=== PATIENT | female | born 1960 | race Caucasian/White ===

== ENCOUNTER 2016-10-17 14:08 | Emergency (ER) | payer MEDICAID ==
--- NOTE | 2016-10-17 14:52 | ED Physician Documentation ---
PD HPI FEMALE - Stated complaint Stated Complaint: FEMALE - Chief complaint Chief Complaint: Abd Pain - History obtained from History obtained from: Patient - History of Present Illness Timing - onset: How many months ago (1 month intermittent lower abd cramping, some vaginal bleeding at times, frequency of urination, and had noted fullness feeling at vaginal opening at times. This is worse the past week. Had been told in the past she had dropped bladder/prolapse, but was doing okay without problems until the past month.) Timing - duration: Months (1) Timing - details: Gradual onset, Still present, Waxing and waning Associated symptoms: Vaginal pain, Urinary frequency. No: Fever, Vaginal discharge, Genital sore/lesion, Hematuria Contributing factors: No: Exposed to STD Recently seen: Not recently seen Review of Systems Constitutional: denies: Fever, Chills Nose: denies: Rhinorrhea / runny nose, Congestion Throat: denies: Sore throat Cardiac: denies: Chest pain / pressure Respiratory: denies: Dyspnea, Cough, Wheezing GI: reports: Abdominal Pain (cramping lower abd pains, and feeling pain in vaginal/pelvic area), Nausea, Diarrhea (soft stool and dark color). denies: Vomiting, Constipation : reports: Frequency. denies: Dysuria, Discharge, Vaginal bleeding Skin: denies: Rash, Lesions PD PAST MEDICAL HISTORY - Past Medical History Cardiovascular: Hypertension, Atrial fibrillation Respiratory: None Neuro: None Endocrine/Autoimmune: None GI: None HUMAN RESOURCES DESIGNATE: None : None Psych: Depression, Anxiety Musculoskeletal: None Derm: None - Past Surgical History Past Surgical History: Yes General: Cholecystectomy, Appendectomy /HUMAN RESOURCES DESIGNATE: Hysterectomy - Present Medications Home Medications: Ambulatory Orders Medication Instructions Recorded Confirmed Alprazolam 1 mg PO 3-4XD PRN 09/25/12 08/02/15 Atenolol 25 mg PO BID 09/25/12 08/02/15 Buprenorphine HCl/Naloxone HCl 08/02/15 [Suboxone 8 mg-2 mg Sl Film] Naproxen [Naprosyn] 500 mg PO BID #20 tablet 10/17/16 - Allergies Allergies/Adverse Reactions: Allergies Allergy/AdvReac Type Severity Reaction Status Date / Time erythromycin base Allergy Unknown Rash Verified 08/02/15 02:18 ibuprofen [From Motrin] Allergy Unknown Rash Verified 08/02/15 02:18 iodine Allergy Unknown Itching Verified 08/02/15 02:18 cephalexin monohydrate * AdvReac Unknown Rash Verified 08/02/15 02:18 [From Keflex] doxycycline calcium * AdvReac Unknown Rash Verified 08/02/15 02:18 [From Vibramycin] morphine AdvReac Unknown Itching Verified 08/02/15 02:18 - Social History Does the pt smoke?: Yes Smoking Status: Current every day smoker Does the pt drink ETOH?: No Does the pt have substance abuse?: No - Immunizations Immunizations are current?: Yes - POLST Patient has POLST: No PD ED PE NORMAL - Vitals Vital signs reviewed: Yes - General General: Alert and oriented X 3, Well developed/nourished, Other (does appear uncomfortable.) - HEENT HEENT: Pharynx benign - Neck Neck: Supple, no meningeal sign, No adenopathy - Cardiac Cardiac: RRR, No murmur - Respiratory Respiratory: Clear bilaterally - Abdomen Abdomen: Normal bowel sounds, Soft, Non distended, No organomegaly, Other (some tenderness supreapubic without guarding. ) - Female Female : [employer] Super[employer] present, Other (external normal. Just inside introitus, the bladder is visible blocking vaginal opening. Easily pushed up. No discharge in vault. ) - Rectal Rectal: Other (guiac negative) - Back Back: No CVA TTP - Derm Derm: Normal color, Warm and dry, No rash Results - Vitals Vitals: Vital Signs - 24 hr 10/17/16 10/17/16 10/17/16 14:11 15:44 18:27 Temperature 36.3 C L Heart Rate 69 61 63 Respiratory 17 20 18 Rate Blood Pressure 184/80 H 156/70 H 149/77 H O2 Saturation 100 97 97 Oxygen O2 Source Room air - Labs Labs: Laboratory Tests 10/17/16 10/17/16 10/17/16 14:41 15:24 16:06 WBC 12.4 H RBC 4.14 L Hgb 12.4 Hct 37.8 MCV 91.2 MCH 29.9 MCHC 32.7 RDW 13.3 Plt Count 245 MPV 10.1 Neut # 8.5 H Lymph # 2.7 [place] # 0.8 Eos # 0.3 Baso # 0.2 H Absolute Nucleated RBC 0.00 Nucleated RBCs 0.0 Sodium 139 Potassium 4.0 Chloride 109 Carbon Dioxide 23 Anion Gap 7.0 BUN 18 Creatinine 0.5 Estimated GFR (MDRD) 129 Glucose 93 Calcium 9.3 Total Bilirubin 1.1 H AST 18 ALT 16 Alkaline Phosphatase 80 Total Protein 6.8 Albumin 3.9 Globulin 2.9 Albumin/Globulin Ratio 1.3 Lipase 27 Urine Color YELLOW Urine Clarity CLEAR Urine pH 7.0 Ur Specific [place] 1.010 Urine Protein NEGATIVE Urine Glucose (UA) NEGATIVE Urine Ketones NEGATIVE Urine Occult Blood TRACE-INTA Urine Nitrite NEGATIVE Urine Bilirubin NEGATIVE Urine Urobilinogen 4 H Ur Leukocyte Esterase NEGATIVE Ur Microscopic Review NOT INDICATED Urine Culture Comments NOT INDICATED PD MEDICAL DECISION MAKING - ED course Complexity details: reviewed results (abd CT is normal), considered differential (could be pain from the bladder dropped, and it is visible with just partial labia, but not sticking out per se. No vaginitis seen. Consider GI cause as well, so got CT and no signs of diverticulitis,etc. ), d/w patient Departure - Departure Disposition: 01 Home, Self Care Clinical Impression: Pelvic pain, Bladder prolapse, female, acquired Condition: Stable Record reviewed to determine appropriate education?: Yes Follow-Up: Willi Barrett MD [Primary Care Provider] - Nitza Sousa DO [Provider Admit Priv/Credential] - Prescriptions: Naproxen [Naprosyn] 500 mg PO BID #20 tablet Comments: No signs of bladder infection, vaginal infection, nor intestinal such as diverticulitis. Presume the pain is from the bladder dropped and irritated. Naproxen twice daily. Follow up with Dr. Sousa[facility]. You could try at the drug store, picking up a Pessary or some type of insert to support the bladder in the interim. Discharge Date/Time: 10/17/16 18:28
[2016-10-17] MEDS ORDERED: SODIUM CHLORIDE 0.9% 1,000 ML IV ONE (15:11)
[2016-10-17 15:13] LABS: BILIRUBIN,URINE NEGATIVE (NEGATIVE)
[2016-10-17] MEDS ORDERED: ACETAMINOPHEN 1,000 MG/100 ML 100 ML IV STA (15:13)
[2016-10-17] MEDS ORDERED: KETOROLAC 15 MG/ML VIAL IVP STA (15:13)
[2016-10-17 15:15] LABS: UA CHARGE (STRIP ONLY) YES; UR CULTURE IF IND NOT INDICATED
[2016-10-17] MEDS ORDERED: ACETAMINOPHEN 1,000 MG/100 ML 100 ML IV ONE (15:27)
[2016-10-17] MEDS ORDERED: KETOROLAC 30 MG/ML VIAL ONE (15:27)
[2016-10-17 15:31] LABS: BASOPHILS # (AUTO) 0.2 10^3/uL (0.0-0.1); BASOPHILS % (AUTO) 1.4 %; EOSINOPHILS # (AUTO) 0.3 10^3/uL (0.0-0.7); EOSINOPHILS % (AUTO) 2.3 %; HCT - HEMATOCRIT 37.8 % (37.0-47.0); HGB - HEMOGLOBIN 12.4 g/dL (12.0-16.0); LYMPHOCYTES # (AUTO) 2.7 10^3/uL (1.5-3.5); LYMPHOCYTES % (AUTO) 21.7 %; MEAN CORPUSCULAR HEMOGLOBIN 29.9 pg (27.0-31.0); MEAN CORPUSCULAR HGB CONC 32.7 g/dL (32.0-36.0); MEAN CORPUSCULAR VOLUME 91.2 fL (81.0-99.0); MEAN PLATELET VOLUME 10.1 fL (7.9-10.8); MONOCYTES # (AUTO) 0.8 10^3/uL (0.0-1.0); MONOCYTES % (AUTO) 6.4 %; NEUTROPHILS # (AUTO) 8.5 10^3/uL (1.5-6.6); NEUTROPHILS % (AUTO) 68.2 %; RED BLOOD COUNT 4.14 10^6/uL (4.20-5.40); RED CELL DISTRIBUTION WIDTH 13.3 % (12.0-15.0); UNCORRECTED WHITE BLOOD COUNT 12.4 x10^3/uL; WHITE BLOOD COUNT 12.4 x10^3/uL (4.8-10.8)
[2016-10-17 16:32] LABS: ALBUMIN/GLOBULIN RATIO 1.3 (1.0-2.2); BILIRUBIN,TOTAL 1.1 mg/dL (0.2-1.0); CALCIUM 9.3 mg/dL (8.5-10.3); CREATININE 0.5 mg/dL (0.4-1.0); TOTAL PROTEIN 6.8 g/dL (6.7-8.2)
--- NOTE | 2016-10-17 18:05 | CT Preliminary Report ---
Exam: CT Abdomen/Pelvis W/O IMPRESSION: 1. Mild cardiomegaly. 2. Left nephrolithiasis. No obstructive uropathy. 3. Colonic diverticulosis. 4. Trace amount of free pelvic fluid. [facility] SITE ID: [id number]
--- NOTE | 2016-10-17 18:22 | CT Report ---
EXAM: CT ABDOMEN AND PELVIS EXAM DATE: 10/17/2016 05:22 PM. CLINICAL HISTORY: Hysterectomy and right oophorectomy. Appendectomy. Lower abdominal/rectal pain for week or so. Patient allergic to IV contrast. COMPARISONS: Chest CT 08/22/2008. No prior CT abdomen and pelvis. TECHNIQUE: Routine helical CT imaging was performed through the abdomen and pelvis. IV contrast: None . Enteric contrast: No. Reconstructions: Coronal and sagittal. In accordance with CT protocol optimization, one or more of the following dose reduction techniques w ere utilized for this exam: automated exposure control, adjustment of mA and/or KV based on patient s ize, or use of iterative reconstructive technique. FINDINGS: Lung Bases: Mild cardiomegaly. Liver: Normal. No masses. Gallbladder/Bile Ducts: Unremarkable. Spleen: Normal. Pancreas: Normal. Adrenal Glands: Normal. Kidneys: 1 mm stone superior left pelvicalyceal system. No renal mass lesions, hydronephrosis. Both u reters are small without calcified stones. Peritoneal Cavity/Bowel: Diverticula off the colon. No free fluid, free air or adenopathy. No masses or acute inflammatory process. Appendectomy. Pelvic Organs: Hysterectomy. Neither ovary seen. Trace amount of left-sided pelvic fluid. No stones in the small caliber urinary bladder. Normal rectum and normal perirectal fat. Vasculature: No aneurysms or other significant abnormality. Bones: No significant abnormality. Other: None. IMPRESSION: 1. Mild cardiomegaly. 2. Left nephrolithiasis. No obstructive uropathy. 3. Colonic diverticulosis. 4. Trace amount of free pelvic fluid. [facility] Referring Provider Line: [phone] SITE ID: [id number]
[2016-10-17 18:28] VITALS: BP 149/77
== END 2016-10-17 18:28 | disposition home or self-care (01) ==
LOC: ED 14:08
DX: R10.2 Pelvic and perineal pain (principal); N81.10 Cystocele, unspecified; I10 Essential (primary) hypertension; I48.91 Unspecified atrial fibrillation; F17.200 Nicotine dependence, unspecified, uncomplicated
CPT/HCPCS: 36415; 51798; 74176; 80053; 81003; 83690; 85025; 96361; 96374; 96375; 99284; J0131; 81001; 87086

== ENCOUNTER 2016-12-02 14:44 | Emergency (ER) | payer MEDICAID ==
--- NOTE | 2016-12-02 16:49 | XRAY Preliminary Report ---
Exam: XR Foot 3 View RT IMPRESSION: 1. Normal alignment without acute fracture or dislocation of the right foot. [facility] SITE ID: [id number]
--- NOTE | 2016-12-02 16:52 | XRAY Report ---
EXAM: RIGHT FOOT RADIOGRAPHY EXAM DATE: 12/02/2016 04:29 PM. CLINICAL HISTORY: INJURY RIGHT FOREFOOT. COMPARISON: None. TECHNIQUE: 3 views. FINDINGS: Bones: Small plantar calcaneal spur. No fractures or bone lesions. Joints: Normal. No subluxations. Soft Tissues: Normal. No soft tissue swelling. IMPRESSION: 1. Normal alignment without acute fracture or dislocation of the right foot. [facility] Referring Provider Line: [phone] SITE ID: [id number]
--- NOTE | 2016-12-02 17:34 | ED Physician Documentation ---
History of Present Illness - Stated complaint Stated Complaint: BILAT FOOT PX - Chief complaint Chief Complaint: Ext Problem - History obtained from History obtained from: Patient - Additonal information Additional information: Patient is a 56-year-old female with history of chronic pain on narcotics and benzodiazepines. There is a emergency department information exchanged care sheet that shows the recent prescriptions. She dropped half a bucket of paint on her foot yesterday and complains of midfoot pain on the right side. She says his pain is worse with walking and better with rest. She is here seeking evaluation for this injury. She denies any injury anywhere else in her body. She denies chest pain, shortness of breath, nausea, vomiting, fever chills, constipation or diarrhea, and lower urinary symptoms. Review of systems: For pertinent positive and negative questions for the review of systems please see history of present illness. Otherwise all other systems have been reviewed and are negative. Dragon disclaimer: Parts of this medical record were created using voice recognition technology. Because of the inherent limitations of this system occasional same sounding word substitutions do occur and persist despite proofreading. Please read the document for context. PD PAST MEDICAL HISTORY - Past Medical History Cardiovascular: Hypertension, Atrial fibrillation Respiratory: None Neuro: None Endocrine/Autoimmune: None GI: None RESERVATIONS AGENT: None : None Psych: Depression, Anxiety Musculoskeletal: None Derm: None - Past Surgical History Past Surgical History: Yes General: Cholecystectomy, Appendectomy /RESERVATIONS AGENT: Hysterectomy - Present Medications Home Medications: Ambulatory Orders Medication Instructions Recorded Confirmed Alprazolam 1 mg PO 3-4XD PRN 09/25/12 12/02/16 Atenolol 25 mg PO BID 09/25/12 12/02/16 Buprenorphine HCl/Naloxone HCl 2 tab DAILY 08/02/15 12/02/16 [Suboxone 8 mg-2 mg Sl Film] Sertraline [Zoloft] 0 mg DAILY 12/02/16 12/02/16 - Allergies Allergies/Adverse Reactions: Allergies Allergy/AdvReac Type Severity Reaction Status Date / Time erythromycin base Allergy Unknown Rash Verified 12/02/16 14:50 ibuprofen [From Motrin] Allergy Unknown Rash Verified 12/02/16 14:50 iodine Allergy Unknown Itching Verified 12/02/16 14:50 cephalexin monohydrate * AdvReac Unknown Rash Verified 12/02/16 14:50 [From Keflex] doxycycline calcium * AdvReac Unknown Rash Verified 12/02/16 14:50 [From Vibramycin] morphine AdvReac Unknown Itching Verified 12/02/16 14:50 - Social History Does the pt smoke?: Yes Smoking Status: Current every day smoker Does the pt drink ETOH?: No Does the pt have substance abuse?: No - Immunizations Immunizations are current?: Yes - POLST Patient has POLST: No PD ED PE NORMAL - General General: Alert and oriented X 3, No acute distress, Other (Appears slightly sedated but is talking almost normally) - HEENT HEENT: Atraumatic, PERRL - Neck Neck: Supple, no meningeal sign - Cardiac Cardiac: RRR, No gallop, No rub, Other. No: No murmur, Strong equal pulses - Respiratory Respiratory: No respiratory distress, Clear bilaterally - Abdomen Abdomen: Normal bowel sounds, Non tender, Non distended - Back Back: No CVA TTP - Derm Derm: Normal color, Warm and dry - Extremities Extremities: Other (Minimal barely perceptible soft tissue swelling forefoot area right side of her the base and middle fourth and fifth metatarsals) Results - Vitals Vitals: Vital Signs - 24 hr 12/02/16 14:45 Temperature 36.2 C L Heart Rate 64 Respiratory 18 Rate Blood Pressure 165/77 H O2 Saturation 94 Oxygen O2 Source Room air PD MEDICAL DECISION MAKING - ED course ED course: Patient presents with complaints of the midfoot contusion. The mechanism as she dropped half a can of paint on it yesterday and has had pain since into the present. On physical exam I really do not see anything abnormal I might be able to appreciate little soft tissue but it is not very impressive. X-rays of the foot were obtained , Read by me, and appear to be completely normal at least in the area of question. My pretest probability for it for acute injury is very low and given the fact that sheIs on chronic high-dose narcotics I see no indication to give her any more narcotics. I am recommending Tylenol as needed rest elevation and follow-up. Disposition: To home Clinical impression: 1. Right Foot contusion-mild Departure - Departure Disposition: 01 Home, Self Care Clinical Impression: Contusion of foot Qualifiers: Encounter type: initial encounter Laterality: right Qualified Code(s): S90.31XA - Contusion of right foot, initial encounter Condition: Good Instructions: ED Contusion Foot Follow-Up: Willi Barrett MD [Primary Care Provider] - Comments: Rest, ice, and elevation.
[2016-12-02 17:43] VITALS: BP 133/69
== END 2016-12-02 17:42 | disposition home or self-care (01) ==
LOC: ED 14:44
DX: S90.31XA Contusion of right foot, initial encounter (principal); W22.8XXA Striking against or struck by other objects, initial encounter; G89.29 Other chronic pain; I10 Essential (primary) hypertension; F17.200 Nicotine dependence, unspecified, uncomplicated
CPT/HCPCS: 99282; 99283

== ENCOUNTER 2017-02-13 08:00 | Outpatient (CLI) | payer MEDICAID ==
[2017-02-13 16:15] LABS: BILIRUBIN,URINE NEGATIVE (NEGATIVE); PH,URINE 6.5 PH (5.0-7.5)
[2017-02-13 16:23] LABS: UR CULTURE IF IND NOT INDICATED; WBC,URINE 0-3 /HPF (0-5)
== END 2017-02-13 08:01 | disposition home or self-care (01) ==
LOC: LAB.R 08:00
PROVIDERS: ATTEND Obstetrics & Gynecology
DX: R35.0 Frequency of micturition (principal)
CPT/HCPCS: 81001; 87086

== ENCOUNTER 2017-03-15 16:58 | Emergency (ER) | payer MEDICAID ==
--- NOTE | 2017-03-15 17:30 | ED Physician Documentation ---
PD HPI UPPER EXT INJURY - Stated complaint Stated Complaint: LEFT ARM INJ - Chief complaint Chief Complaint: Ext Problem - History obtained from History obtained from: Patient - History of Present Illness Location: Left, Wrist Type of injury: Fall Timing - onset: Today Timing - details: Abrupt onset, Still present Improved by: No: Rest Worsened by: Moving, Palpating Associated symptoms: Swelling. No: Weakness, Numbness Similar symptoms before: Has not had sx before Recently seen: Not recently seen Review of Systems Skin: denies: Abrasion (s), Laceration (s) Neurologic: reports: Generalized weakness. denies: Focal weakness, Numbness PD PAST MEDICAL HISTORY - Past Medical History Cardiovascular: Hypertension, Atrial fibrillation Respiratory: None Neuro: None Endocrine/Autoimmune: None GI: None FIBREGLASS LAMINATOR: None : None Psych: Depression, Anxiety Musculoskeletal: None Derm: None - Past Surgical History Past Surgical History: Yes General: Cholecystectomy, Appendectomy /FIBREGLASS LAMINATOR: Hysterectomy - Present Medications Home Medications: Ambulatory Orders Medication Instructions Recorded Confirmed Alprazolam 1 mg PO 3-4XD PRN 09/25/12 03/15/17 Atenolol 25 mg PO BID 09/25/12 03/15/17 Buprenorphine HCl/Naloxone HCl 2 tab DAILY 08/02/15 03/15/17 [Suboxone 8 mg-2 mg Sl Film] Atenolol 25 mg PO BID #60 tablet 03/15/17 Naproxen 375 mg PO BID #20 tablet 03/15/17 Sertraline [Zoloft] 50 mg PO DAILY #60 tablet 03/15/17 - Allergies Allergies/Adverse Reactions: Allergies Allergy/AdvReac Type Severity Reaction Status Date / Time erythromycin base Allergy Unknown Rash Verified 03/15/17 17:44 ibuprofen [From Motrin] Allergy Unknown Rash Verified 03/15/17 17:44 iodine Allergy Unknown Itching Verified 03/15/17 17:44 cephalexin monohydrate * AdvReac Unknown Rash Verified 03/15/17 17:44 [From Keflex] doxycycline calcium * AdvReac Unknown Rash Verified 03/15/17 17:44 [From Vibramycin] morphine AdvReac Unknown Itching Verified 03/15/17 17:44 - Social History Does the pt smoke?: Yes Smoking Status: Current every day smoker Does the pt drink ETOH?: No Does the pt have substance abuse?: No - Immunizations Immunizations are current?: Yes - POLST Patient has POLST: No PD ED PE NORMAL - Vitals Vital signs reviewed: Yes - General General: Alert and oriented X 3, No acute distress, Well developed/nourished - HEENT HEENT: Atraumatic - Neck Neck: Supple, no meningeal sign, No bony TTP, No adenopathy - Cardiac Cardiac: RRR - Respiratory Respiratory: No respiratory distress, Clear bilaterally - Abdomen Abdomen: Soft, Non tender - Derm Derm: Normal color, Warm and dry Results - Vitals Vitals: Oxygen O2 Source Room air PD MEDICAL DECISION MAKING - ED course Complexity details: reviewed results (nondisplaced distal radius fracture. ), considered differential, d/w patient Departure - Departure Disposition: Home, Self Care Clinical Impression: Fall from slip, trip, or stumble Qualifiers: Encounter type: initial encounter Qualified Code(s): W01.0XXA - Fall on same level from slipping, tripping and stumbling without subsequent striking against object, initial encounter Distal radius fracture, left Qualifiers: Encounter type: initial encounter Fracture type: closed Fracture morphology: Colles' Qualified Code(s): S52.532A - Colles' fracture of left radius, initial encounter for closed fracture Hypertension Qualifiers: Hypertension type: unspecified secondary hypertension Qualified Code(s): I15.9 - Secondary hypertension, unspecified Condition: Stable Record reviewed to determine appropriate education?: Yes Instructions: ED Fx Colles Wrist No Redu Requ Follow-Up: Joaquina Garcia MD [Provider Admit Priv/Credential] - Prescriptions: Atenolol 25 mg PO BID #60 tablet Naproxen 375 mg PO BID #20 tablet Sertraline [Zoloft] 50 mg PO DAILY #60 tablet Comments: Keep the splint on the wrist with elevation and ice periodically for swelling. Use a sling to keep it elevated. You can use naproxen twice daily and add Tylenol if needed for pain. Continue usual medications. Follow-up with orthopedics in about 5-7 days. Call Friday for an appointment. This will take about 4-6 weeks to heal up, but at the orthopedic visit they will likely re-x- ray to make sure it is still in position and then change from the splint to the cast. Discharge Date/Time: 03/15/17 19:19
[2017-03-15] MEDS ORDERED: ACETAMINOPHEN 325 MG TABLET PO STA (17:37)
[2017-03-15] MEDS ORDERED: ACETAMINOPHEN 325 MG TABLET PO ONE (17:45)
[2017-03-15] MEDS ORDERED: KETOROLAC 60 MG/2 ML VIAL IM STA (18:20)
[2017-03-15] MEDS ORDERED: ATENOLOL 25 MG TABLET PO STA (18:21)
--- NOTE | 2017-03-15 18:32 | XRAY Preliminary Report ---
Exam: XR WRIST 4 VIEW LT IMPRESSION: Colles' fracture [facility] SITE ID: [id number]
[2017-03-15] MEDS ORDERED: ATENOLOL 25 MG TABLET ONE (18:35)
[2017-03-15] MEDS ORDERED: KETOROLAC 30 MG/ML VIAL ONE (18:35)
--- NOTE | 2017-03-15 18:39 | XRAY Report ---
EXAM: LEFT WRIST RADIOGRAPHY EXAM DATE: 03/15/2017 06:13 p.m. CLINICAL HISTORY: Fall with wrist injury. COMPARISON: None. TECHNIQUE: 4 views. FINDINGS: Bones: Acute 2 x 3 mm nondisplaced flake fracture at the tip of the ulnar styloid process. Acute comminuted fracture of the distal radius, transverse component distal radial metaphysis, with a orthogonal component sagittal plane extending to the articulating cortex and distal radial diaphysis . Joints: Normal. No subluxations. Soft Tissues: Edema at the fracture sites. IMPRESSION: Colles' fracture. [facility] Referring Provider Line: [phone] SITE ID: [id number]
[2017-03-15 19:19] VITALS: BP 182/91
== END 2017-03-15 19:19 | disposition home or self-care (01) ==
LOC: ED 16:58
DX: S52.532A Colles' fracture of left radius, initial encounter for closed fracture (principal); W01.0XXA Fall on same level from slipping, tripping and stumbling without subsequent striking against object, initial encounter; I10 Essential (primary) hypertension; I48.91 Unspecified atrial fibrillation; F17.200 Nicotine dependence, unspecified, uncomplicated
CPT/HCPCS: 29105; 73110; 96372; 99283; 99284; A9270

== ENCOUNTER 2017-08-19 10:53 | Outpatient (CLI) | payer MEDICAID ==
--- NOTE | 2017-08-20 16:09 | Mammography Report ---
DIGITAL SCREENING MAMMOGRAM: 08/19/2017 CLINICAL INDICATION: A 57-year-old nulliparous patient, for screening. COMPARISON: 11/2015, 09/2013, 09/2012, 09/2011, 02/2010. TECHNIQUE: Routine CC and MLO projections were obtained of the breasts. FINDINGS: The breasts demonstrate scattered fibroglandular densities bilaterally. A few coarse, typically benign calcifications are present. No suspicious masses, clustered microcalcifications, or regions of architectural distortion are identified. IMPRESSION: BENIGN FINDINGS. RECOMMENDATION: ROUTINE ANNUAL SCREENING UNLESS OTHERWISE CLINICALLY INDICATED. BIRADS CATEGORY 2-BENIGN FINDINGS. STANDARD QUALIFYING STATEMENTS: 1. This examination was reviewed with the aid of Computer-Aided Detection (CAD). 2. A negative or benign imaging report should not delay biopsy if clinically suspicious findings are present. Consider surgical consultation if warranted. More than 5% of cancers are not identified by imaging. 3. Dense breasts may obscure an underlying neoplasm. TD: 08/20/2017 16:08
== END 2017-08-19 10:54 | disposition home or self-care (01) ==
LOC: DI 10:53
PROVIDERS: ATTEND Physician Assistant Medical
DX: Z00.00 Encounter for general adult medical examination without abnormal findings (principal)
CPT/HCPCS: 77067

== ENCOUNTER 2018-02-19 08:52 | Outpatient (CLI) | payer MEDICAID ==
--- NOTE | 2018-02-19 12:29 | XRAY Report ---
Reason: PAIN IN R HAND Procedure Date: 02/19/2018 Accession Number: [id number] / [id number] Procedure: XRN - Hand 3 View RT CPT Code: FULL RESULT: EXAM: RIGHT HAND RADIOGRAPHY EXAM DATE: 02/19/2018 09:15 AM. CLINICAL HISTORY: Pain in right hand. COMPARISON: None. TECHNIQUE: 3 views. FINDINGS: Bones: Normal. No fractures or bone lesions. Joints: Mild degenerative changes are seen in the region of the first and second carpometacarpal joints. No subluxation is identified. Soft Tissues: Normal. No soft tissue swelling. IMPRESSION: No fracture or dislocation. [facility]
== END 2018-02-19 08:53 | disposition home or self-care (01) ==
LOC: DI.N 08:52
PROVIDERS: ATTEND Physician Assistant Medical
DX: M79.641 Pain in right hand (principal)

== ENCOUNTER 2018-08-05 08:00 | Outpatient (CLI) | payer MEDICAID ==
[2018-08-05 19:19] LABS: BASOPHILS # (AUTO) 0.1 10^3/uL (0.0-0.1); BASOPHILS % (AUTO) 0.8 %; EOSINOPHILS # (AUTO) 0.3 10^3/uL (0.0-0.7); EOSINOPHILS % (AUTO) 2.5 %; LYMPHOCYTES # (AUTO) 3.2 10^3/uL (1.5-3.5); LYMPHOCYTES % (AUTO) 30.2 %; MEAN CORPUSCULAR HEMOGLOBIN 29.6 pg (27.0-31.0); MEAN CORPUSCULAR HGB CONC 33.2 g/dL (32.0-36.0); MEAN CORPUSCULAR VOLUME 89.3 fL (81.0-99.0); MEAN PLATELET VOLUME 8.8 fL (7.9-10.8); MONOCYTES # (AUTO) 0.7 10^3/uL (0.0-1.0); MONOCYTES % (AUTO) 6.5 %; NEUTROPHILS # (AUTO) 6.4 10^3/uL (1.5-6.6); PLT - PLATELET COUNT 194 10^3/uL (130-450); RED BLOOD COUNT 4.73 10^6/uL (4.20-5.40); RED CELL DISTRIBUTION WIDTH 13.7 % (12.0-15.0); WHITE BLOOD COUNT 10.7 x10^3/uL (4.8-10.8)
[2018-08-05 19:29] LABS: ALBUMIN 4.6 g/dL (3.2-5.5); ALBUMIN/GLOBULIN RATIO 1.4 (1.0-2.2); ALKALINE PHOSPHATASE 92 IU/L (42-121); ALT ALANINE AMINOTRANSFERASE 16 IU/L (10-60); AST ASPARTATE AMINOTRANSFERASE 23 IU/L (10-42); BILIRUBIN,TOTAL 0.9 mg/dL (0.2-1.0); BUN - BLOOD UREA NITROGEN 22 mg/dL (6-20); CALCIUM 10.6 mg/dL (8.5-10.3); CARBON DIOXIDE - CO2 29 mmol/L (21-32); CHLORIDE 99 mmol/L (101-111); CREATININE 0.6 mg/dL (0.4-1.0); GFR - MDRD 103 (>89); GLUCOSE 112 mg/dL (70-100); SODIUM 136 mmol/L (135-145); TOTAL PROTEIN 7.9 g/dL (6.7-8.2); URIC ACID 6.6 mg/dL (2.6-7.2)
[2018-08-05 19:31] LABS: CRP - C-REACTIVE PROTEIN < 1.0 mg/dL (0-1.0)
== END 2018-08-05 23:59 | disposition home or self-care (01) ==
LOC: LAB.N 08:00
PROVIDERS: ATTEND Family Medicine
DX: R25.2 Cramp and spasm (principal); I10 Essential (primary) hypertension
CPT/HCPCS: 36415; 80053; 83735; 84550; 85025; 85651; 86140

== ENCOUNTER 2018-08-20 14:22 | Outpatient (CLI) | payer MEDICAID ==
--- NOTE | 2018-08-21 10:28 | Mammography Report ---
Reason: SCREENING MAMMO Procedure Date: 08/20/2018 Accession Number: [id number] / [id number] Procedure: MGN - Screening Mammo Dig Bilat CPT Code: FULL RESULT: EXAM: Screening Mammo Dig Bilat DATE: 08/20/2018 2:58 PM CLINICAL HISTORY: Screening encounter. History of nulliparity and early menses. TECHNIQUE: Bilateral CC, laterally exaggerated CC, MLO views were obtained. COMPARISON: 08/19/2017 through 10/22/2012. FINDINGS: The breasts demonstrate scattered fibroglandular densities bilaterally. There are coarse typically benign calcifications. No suspicious masses, clustered microcalcifications, or regions of architectural distortion are identified. IMPRESSION: Benign findings RECOMMENDATION: Routine annual screening unless otherwise clinically indicated. BIRADS CATEGORY 2: Benign findings STANDARD QUALIFYING STATEMENTS: 1. This examination was reviewed with the aid of Computer-Aided Detection (CAD). 2. A negative or benign imaging report should not delay biopsy if clinically suspicious findings are present. Consider surgical consultation if warrented. More than 5% of cancers are not identified by imaging. 3. Dense breasts may obscure an underlying neoplasm.
== END 2018-08-20 14:23 | disposition home or self-care (01) ==
LOC: DI.N 14:22
DX: Z12.31 Encounter for screening mammogram for malignant neoplasm of breast (principal)
CPT/HCPCS: 77067

== ENCOUNTER 2018-09-21 08:00 | Outpatient (CLI) | payer MEDICAID | END 2018-09-21 23:59 | disposition home or self-care (01) | LOC: LAB.N 08:00 | PROVIDERS: ATTEND Physician Assistant Medical | DX: Z01.84 Encounter for antibody response examination (principal) | CPT/HCPCS: 36415; 86765 ==

== ENCOUNTER 2019-02-16 11:31 | Outpatient (CLI) | payer MEDICAID ==
--- NOTE | 2019-02-16 15:00 | XRAY Report ---
Reason: PRODUCTIVE COUGH Procedure Date: 02/16/2019 Accession Number: [id number] / [id number] Procedure: XRN - Chest 2 View X-Ray CPT Code: 23473 FULL RESULT: EXAM: CHEST RADIOGRAPHY EXAM DATE: 02/16/2019 11:43 AM. CLINICAL HISTORY: Productive cough. COMPARISON: CHEST 1 VIEW 01/04/2013 11:34 AM. TECHNIQUE: 2 views. FINDINGS: Lungs/Pleura: No focal opacities evident. No pleural effusion. No pneumothorax. Normal volumes. Mediastinum: Mild cardiomegaly and calcification of the aortic arch, again seen, not significantly changed compared to 2012. Other: Redemonstration of median sternotomy changes. IMPRESSION: No acute airspace disease is detected. [facility]
== END 2019-02-16 11:32 | disposition home or self-care (01) ==
LOC: DI.N 11:31
PROVIDERS: ATTEND Physician Assistant Medical
DX: R05 Cough (principal)
CPT/HCPCS: 71046

== ENCOUNTER 2019-11-17 15:52 | Outpatient (CLI) | payer MEDICAID ==
--- NOTE | 2019-11-17 15:12 | XRAY Report ---
Reason: RIGHT FOOT PAIN Procedure Date: 11/17/2019 Accession Number: [id number] / [id number] Procedure: WCP - Foot 2 View RT CPT Code: Final Report FULL RESULT: PROCEDURE: Foot 2 View RT INDICATIONS: RIGHT FOOT PAIN TECHNIQUE: 2 views of the foot were acquired. COMPARISON: None FINDINGS: Bones: No fractures or dislocations. No suspicious bony lesions. Soft tissues: No tibiotalar joint effusion. Achilles tendon appears normal. IMPRESSION: No acute trauma found. Mild swelling is seen over the fifth MTP P joint, possibly chronic, without lateral bunion formation. Please correlate for whether prior trauma has occurred. If so then follow-up delayed plain film imaging may be warranted if unusual symptoms persist. Reviewed by: Dakotah Henson MD on 11/17/2019 3:10 PM PDT Approved by: Dakotah Henson MD on 11/17/2019 3:10 PM PDT Station ID: [id number]
== END 2019-11-17 23:59 | disposition home or self-care (01) ==
LOC: DI.WCP 15:52
PROVIDERS: ATTEND Nurse Practitioner Family
DX: R93.6 Abnormal findings on diagnostic imaging of limbs (principal)

== ENCOUNTER 2020-05-27 10:59 | Outpatient (CLI) | payer MEDICAID ==
--- NOTE | 2020-05-27 12:35 | Ultrasound Report ---
PROCEDURE: Duplex Lwr Ext Arterial RT INDICATIONS: RT FOOT PAIN TECHNIQUE: Color and pulse Doppler interrogation was performed of the right lower extremity arterial system, wit h image documentation. COMPARISON: None FINDINGS: Common femoral artery: 157 cm/sec, with triphasic flow. Deep femoral artery: 129 cm/sec, with triphasic flow. Proximal superficial femoral artery: 107 cm/sec, with triphasic flow. Mid superficial femoral artery: 128 cm/sec, with triphasic flow. Distal superficial femoral artery: 136 cm/sec, with triphasic flow. Popliteal artery: 121 cm/sec, with triphasic flow. Posterior tibial artery: Distally 29 cm/sec, with biphasic/monophasic flow. Anterior tibial artery/dorsalis pedis: 129 cm/sec, with monophasic flow. Burr-scale imaging description: There is likely plaque within the posterior tibial artery. IMPRESSION: Focal disease seen within the right posterior tibial artery. Reviewed by: Dave Pak MD on 05/27/2020 11:34 AM [facility] Approved by: Dave Pak MD on 05/27/2020 11:34 AM [facility] Station ID: [id number]
== END 2020-05-27 11:00 | disposition home or self-care (01) ==
LOC: DI 10:59
PROVIDERS: ATTEND Family Medicine
DX: R93.6 Abnormal findings on diagnostic imaging of limbs (principal)

== ENCOUNTER 2020-09-18 07:00 | Outpatient (CLI) | payer MEDICAID ==
--- NOTE | 2020-09-18 15:58 | XRAY Report ---
PROCEDURE: Wrist 3 View RT INDICATIONS: R WRIST PX TECHNIQUE: 3 views of the wrist were acquired. COMPARISON: None FINDINGS: Bones: No fractures or dislocations. No suspicious bony lesions. Scaphoid view: Not requested Soft tissues: No suspicious soft tissue calcifications. IMPRESSION: No acute fracture. No osseous lesion. If symptoms and/or clinical suspicion for pathology continue, f urther assessment with repeat plain films, or advanced imaging (e.g., CT, MRI, or bone scan) is recom mended for further assessment. Reviewed by: Tiera Castillo MD on 09/18/2020 3:57 PM PDT Approved by: Tiera Castillo MD on 09/18/2020 3:57 PM PDT Station ID: [id number]
== END 2020-09-18 23:59 | disposition home or self-care (01) ==
LOC: DI.N 07:00
PROVIDERS: ATTEND Family Medicine
DX: M25.531 Pain in right wrist (principal)

== ENCOUNTER 2020-09-18 15:03 | Outpatient (CLI) | payer MEDICAID ==
--- NOTE | 2020-09-19 13:24 | Mammography Report ---
BILATERAL DIGITAL SCREENING MAMMOGRAM 3D/2D: 09/18/2020 CLINICAL: Routine screening. Comparison is made to exams dated: 08/20/2018 mammogram, 08/19/2017 mammogram, and 12/06/2015 mammogram - [facility]. There are scattered fibroglandular elements in both breasts. No significant masses, calcifications, or other findings are seen in either breast. There has been no significant interval change. IMPRESSION: NEGATIVE There is no mammographic evidence of malignancy. A 1 year screening mammogram is recommended. This exam was interpreted at Station ID: [id number]. NOTE: For mammograms, a report in lay terms will be sent to the patient. Approximately 15% of breast malignancies will not be visualized mammographically. In the management of a palpable breast mass, a negative mammogram must not discourage biopsy of a clinically suspicious lesion. Electronically Signed By: Venice levine/penrad:09/18/2020 20:36:57 ACR BI-RADS Category 1: Negative 3341F PARENCHYMAL PATTERN: (A) - The breast(s) demonstrate(s) scattered fibroglandular densities. BI-RADS CATEGORY: (1) - 1 RECOMMENDATION: (ANNUAL) - Recommend routine annual screening mammography. [id number] 1 year screening LATERALITY: (B)
== END 2020-09-18 15:04 | disposition home or self-care (01) ==
LOC: DI.N 15:03
DX: Z12.31 Encounter for screening mammogram for malignant neoplasm of breast (principal)

== ENCOUNTER 2023-04-10 13:19 | Outpatient (CLI) | payer MEDICAID ==
--- NOTE | 2023-04-11 13:14 | Mammography Report ---
BILATERAL DIGITAL SCREENING MAMMOGRAM 3D/2D: 04/10/2023 CLINICAL: Routine screening. Comparison is made to exams dated: 09/18/2020 mammogram, 08/20/2018 mammogram, 08/19/2017 mammogram, mammogram, 09/30/2013 mammogram, and 10/22/2012 mammogram - [facility]. There are scattered areas of fibroglandular density in both breasts (category b / 25%-50% glandular t issue). No significant masses, calcifications, or other findings are seen in either breast. There has been no significant interval change. IMPRESSION: NEGATIVE There is no mammographic evidence of malignancy. A 1 year screening mammogram is recommended. Based on the Tyrer Cuzick model (a risk assessment model) the patients lifetime risk is 7.9% and her 10 year risk is 3.2%. According to the ACR, ACS, and NCCN guidelines, an annual breast MRI exam mathew g with mammogram is recommended if the patients lifetime risk is 20% or greater. This exam was interpreted at Station ID: [id number]. NOTE: For mammograms, a report in lay terms will be sent to the patient. Approximately 15% of breast malignancies will not be visualized mammographically. In the management of a palpable breast mass, a negative mammogram must not discourage biopsy of a clinically suspicious lesion. Electronically Signed By: Harmeet [email or web address]/[email or web address]:04/10/2023 16:22:55 letter sent: No_Letter ACR BI-RADS Category 1: Negative 3341F PARENCHYMAL PATTERN: (A) - The breast(s) demonstrate(s) scattered fibroglandular densities. BI-RADS CATEGORY: (1) - 1 Mammogram [id number] 1 year screening LATERALITY: (B)
== END 2023-04-10 13:20 | disposition home or self-care (01) ==
LOC: DI.N 13:19
DX: Z12.31 Encounter for screening mammogram for malignant neoplasm of breast (principal); R92.323 Mammographic fibroglandular density, bilateral breasts

== ENCOUNTER 2023-06-03 14:15 | Outpatient (CLI) | payer MEDICAID ==
[2023-06-03 19:13] LABS: INFLUENZA A- RESP PCR PANEL NOT DETECTED; INFLUENZA B - RESP PCR PANEL NOT DETECTED; RSV- RESP PCR PANEL NOT DETECTED; SARS-CoV-2 -RESP PCR PANEL DETECTED
== END 2023-06-03 14:30 | disposition home or self-care (01) ==
LOC: LAB.N 14:15
PROVIDERS: ATTEND Physician Assistant Medical
DX: U07.1 COVID-19 (principal)
CPT/HCPCS: 87637

== ENCOUNTER 2023-06-05 12:42 | Outpatient (CLI) | payer MEDICAID | END 2023-06-05 12:43 | disposition EMS.NT | LOC: EMS 12:42 | DX: R00.2 Palpitations (principal) ==

== ENCOUNTER 2023-08-08 15:15 | Outpatient (CLI) | payer MEDICAID ==
--- NOTE | 2023-08-08 17:20 | XRAY Report ---
PROCEDURE: Toe(s) 2+V LT INDICATIONS: CONTUSION OF LEFT LESSER TOE(S) TECHNIQUE: 3 views of the fourth and fifth toe(s) acquired. COMPARISON: None. FINDINGS: Bones: Suspected nondisplaced fracture at the base of the fifth proximal phalanx. Soft tissues: No suspicious soft tissue densities. Linear foreign body within the lateral hindfoot. IMPRESSION: Suspected nondisplaced fracture at the base of the fifth proximal phalanx. Linear foreign body projecting over the lateral hindfoot, probably external to the patient. Reviewed by: Arnold Parson MD on 08/08/2023 5:18 PM PDT Approved by: Arnold Parson MD on 08/08/2023 5:18 PM PDT Station ID: [id number]
== END 2023-08-08 15:30 | disposition home or self-care (01) ==
LOC: DI.N 15:15
PROVIDERS: ATTEND Nurse Practitioner
DX: S90.122A Contusion of left lesser toe(s) without damage to nail, initial encounter (principal)
CPT/HCPCS: 73660

== ENCOUNTER 2023-08-18 14:57 | Outpatient (CLI) | payer MEDICAID | END 2023-08-18 23:59 | disposition left against medical advice (07) | LOC: EMS 14:57 | DX: I48.91 Unspecified atrial fibrillation (principal) ==